=== PATIENT | female | born 1945 | race Caucasian/White ===

== ENCOUNTER 2021-08-28 13:53 | Outpatient (RCR) | payer BC, MEDICARE | END 2021-09-26 | disposition home or self-care (01) | LOC: CARDREHAB → EDSTATUS 13:54 | DX: I21.9 Acute myocardial infarction, unspecified (principal); Z95.1 Presence of aortocoronary bypass graft ==

== ENCOUNTER → 2021-09-11 | Outpatient (CLI) | payer BC, MEDICARE | LOC: RAD 11:36 | DX: M51.26 Other intervertebral disc displacement, lumbar region (principal); M51.36 Other intervertebral disc degeneration, lumbar region ==

== ENCOUNTER 2021-09-28 11:00 | Outpatient (RCR) | payer BC | END 2021-10-26 | disposition home or self-care (01) | LOC: CARDREHAB | DX: Z48.812 Encounter for surgical aftercare following surgery on the circulatory system (principal); Z95.5 Presence of coronary angioplasty implant and graft; I25.2 Old myocardial infarction ==

== ENCOUNTER 2021-10-31 08:00 | Outpatient (RCR) | payer BC, MEDICARE | END 2021-11-26 | disposition still patient (30) | LOC: CARDREHAB | DX: Z48.812 Encounter for surgical aftercare following surgery on the circulatory system (principal); Z95.5 Presence of coronary angioplasty implant and graft; I25.2 Old myocardial infarction ==